=== PATIENT | female | born 1955 | race Caucasian/White ===

== ENCOUNTER 2016-08-21 10:35 | Day surgery (SDC) | payer BC ==
--- NOTE | 2016-08-08 18:57 | HP ---
PREOPERATIVE HISTORY AND PHYSICAL: DATE OF ADMISSION/SURGERY: 08/21/16 This patient is scheduled for Same-Day Surgery admission by Dr. Gottlieb, on 08/21/16. ATTENDING SURGEON: Roni Gottlieb MD (dictated by Chelita Varner NP) CHIEF COMPLAINT: Abdominal pain. HISTORY OF PRESENT ILLNESS: The patient is a 61-year-old female known to Dr. Gottlieb, status post laparoscopic Hardik-en-Y gastric bypass in June 2011. Dr. Gottlieb saw the patient in our office, 07/01/16, with complaints of right upper quadrant abdominal pain. She denies any change in the color of urine or stool or any particular foods that aggravate the pain. She underwent gallbladder ultrasound, 07/02/16, which revealed cholelithiasis without any acute changes. The liver was noted to be normal size. Dr. Gottlieb has recommended laparoscopic cholecystectomy as a Same-Day Surgery procedure and has discussed the nature of the surgical procedure, the rationale for the procedure, the relevant risks and benefits, and today I have reviewed the expected postoperative care and recovery. The patient has had a chance to ask questions and stated that she understands the information and is satisfied with the answers given to her questions. She will sign surgical consent on the day of surgery. PAST MEDICAL HISTORY: Significant for morbid obesity, sleep apnea, previously using CPAP and then discontinued it in 2012 and she has a followup visit with Dr. Neal in August. She also has a history of asthma and environmental allergies. PAST SURGICAL HISTORY: Laparoscopic Hardik-en-Y gastric bypass in [address] Gottlieb; partial hysterectomy for fibroids; tonsillectomy and adenoidectomy. MEDICATIONS: 1. Vitamin B12 at 2000 mcg p.o. daily. 2. MiraLAX 17 g daily. 3. Biotin 10,000 mcg daily. 4. Aspirin 81 mg daily and I have advised her to hold that for 1 week preoperatively. 5. Multivitamin daily. 6. Vitamin C 500 mg daily. 7. Vitamin D3 at 2000 international units daily. 8. Calcium plus D supplement daily. ALLERGIES: ALEVE causes vomiting, TOMATOES cause itching, and she has ENVIRONMENTAL ALLERGIES. FAMILY HISTORY: No known anesthesia complications, bleeding tendencies, or clotting disorders; she states that her mother had gallbladder surgery many years ago and had an arrhythmia afterwards. SOCIAL HISTORY: She lives with her boyfriend; she is employed full-time as an Medical Receptionist at a [employer]; she has never been a smoker and rarely consumes alcohol and denies the use of other substances. REVIEW OF SYSTEMS: She denies any cardiac condition or complaints; she denies any history of deep vein thrombosis or pulmonary embolism; she denies any nausea or vomiting or change in the color of urine or stool; she takes MiraLAX daily for prevention of constipation with good results; she denies any previous anesthesia complications; she denies any bleeding tendencies and may have had a transfusion after child . She denies any dysuria. Today, she reports a sinus headache and a dry cough and plans to schedule an appointment for followup with her primary care provider. She denies any fever or chills or sputum production. PHYSICAL EXAMINATION GENERAL SURVEY: The patient is a 61-year-old overweight female, in no acute distress. VITAL SIGNS: Height 64 inches, weight 199 pounds, body mass index 34.2. Blood pressure 130/88, pulse 84 and regular, respiratory rate 16, temperature 98.4 tympanic. HEENT: Benign. NECK: Supple. No cervical lymphadenopathy. LUNGS: Breath sounds bilaterally clear and equal. No wheezes or rhonchi. HEART: Regular rate and rhythm. No murmurs or rubs appreciated. ABDOMEN: Obese, multiple well-healed surgical scars. Soft and nondistended and nontender throughout. Small palpable umbilical hernia when the patient coughs. No other obvious masses or organomegaly. BACK: No CVA tenderness. PELVIC: Deferred. RECTAL: Deferred. EXTREMITIES: Warm without edema or skin ulcerations. SKIN: Warm, dry, intact. NEUROLOGIC: Alert and oriented x3, steady gait. IMPRESSION: Symptomatic cholelithiasis. PLAN: Same-Day Surgery admission to Dr. Gottlieb's service on 08/21/16 , for laparoscopic cholecystectomy. CHELITA VARNER NP CC: Roni Gottlieb MD at [facility]; Fransico Kim MD * [id number]/[facility] #: [id number] [facility]
[~2016-08-21 10:35] MED LIST: Buffered Lidocaine 1% SYR 3ML* 3 ML/SYR SYRINGE INTRADERM ONE; Famotidine IV* 10 MG/ML 2 ML (20 mg) IV ONE; Morphine INJ* 2 MG/ML 1 ML CARPUJECT IV PRN; PROCHLORPERAZINE INJ 5 MG/ML 2 ML VIAL IV PRN; oxyCODONE/Acetamin 5/325 MG* TAB PO PRN
[2016-08-21] MEDS ORDERED: Atracurium* 10 MG/ML 10 ML VIAL ONE (10:48)
[2016-08-21] MEDS ORDERED: fentaNYL* 50 MCG/ML 2 ML VIAL (100 MCG VIAL) ONE ×2 (10:48→13:07)
[2016-08-21] MEDS ORDERED: Midazolam* 1 MG/ML 5 ML VIAL (5 MG) ONE (10:48)
[2016-08-21] MEDS ORDERED: KETAMINE HCL* 50 MG/ML 10 ML VIAL ONE (10:48)
[2016-08-21] MEDS ORDERED: Buffered Lidocaine 1% SYR 3ML* 3 ML/SYR SYRINGE ONE (10:58)
[2016-08-21] MEDS ORDERED: Famotidine IV* 10 MG/ML 2 ML (20 mg) ONE (10:58)
[2016-08-21] MEDS ORDERED: ceFAZolin 2 GM PREMIX (*) 2 GM/50 ML BAG IVPB ONE (10:58)
[2016-08-21] MEDS ORDERED: Bupivacaine 0.25% EPI 200,000* 30 ML SDV ONE (11:07)
[2016-08-21] MEDS ORDERED: Glycopyrrolate IV* 0.2 MG/ML 1 ML VIAL ONE (11:51)
[2016-08-21] MEDS ORDERED: Propofol* 10 MG/ML 20 ML BTL IV PUSH ONE ×2 (11:51→11:53)
[2016-08-21] MEDS ORDERED: Neostigmine Methylsulfate* 2 MG/2 ML SYRINGE ONE (11:51)
[2016-08-21] MEDS ORDERED: Ondansetron INJ* 2 MG/ML VIAL ONE (11:51)
[2016-08-21] MEDS ORDERED: Dexamethasone IV* 4 MG/ML 1 ML (4 MG) ONE (11:51)
[2016-08-21] MEDS ORDERED: Labetalol IV* 5 MG/ML 20 ML VIAL ONE (11:53)
[2016-08-21] MEDS ORDERED: Morphine INJ* 10 MG/ML 1 ML CARPUJECT ONE (11:56)
[2016-08-21] MEDS ORDERED: hydrALAZINE IV* 20 MG/ML VIAL ONE (12:31)
--- NOTE | 2016-08-21 12:32 | SURGPN ---
Brief Operative Note - Surgery Procedures: Pre-OP Diagnoses: chronic cholecystitis Post-op Diagnosis: same Procedure: Laparoscopic cholecystectomy Surgeon: Bull Asst: Fransico Correiatheraji: MAHOGANY Rebolledo EBL: 50cc IVF: 1400ccLR Specimen: gallbladder Drains: none
[2016-08-21] MEDS ORDERED: oxyCODONE/Acetamin 5/325 MG* TAB ONE (13:07)
[2016-08-21] MEDS ORDERED: PROCHLORPERAZINE INJ 5 MG/ML 2 ML VIAL ONE (13:07)
[2016-08-21] MEDS: fentaNYL* 50 MCG/ML 2 ML VIAL (100 MCG VIAL) IV PRN ×4 (13:11→13:38)
[2016-08-21 14:06] VITALS: BP 157/90
[2016-08-21] MEDS ORDERED: Scopolamine 1.5 mg* PATCH ONE (14:19)
--- NOTE | 2016-08-22 03:07 | OP ---
DATE OF OPERATION: 08/21/16 [facility] DATE OF : 57 SURGEON: Roni Gottlieb MD. CADDY: Elif Bateman NP. ANESTHESIOLOGIST: Dr. Rebolledo. ANESTHESIA: General anesthesia. PRE-OP DIAGNOSIS: Chronic cholecystitis. POST-OP DIAGNOSIS: Chronic cholecystitis. OPERATIVE PROCEDURE: Laparoscopic cholecystectomy. ESTIMATED BLOOD LOSS: 50 cc. FLUIDS: 1400 cc of crystalloid fluid given. SPECIMEN: Gallbladder. DRAINS: None. COMPLICATIONS: None. COUNTS: Lap pad count and instrument count correct at the end of the procedure. DESCRIPTION OF PROCEDURE: The patient was identified in the preoperative area, marked, consent signed, case discussed again with her, and then she was taken to the operating room, placed on the operating table in supine position. Preoperative antibiotics were given. Sequential devices were placed on bilateral lower extremities. General anesthesia was induced. The patient's abdomen was prepped and draped in the standard surgical fashion, a time-out was performed. The folds of the umbilicus were elevated anteriorly and a Veress needle was inserted into the abdominal cavity, which was then allowed to be insufflated to a pressure of 15 mmHg. The patient tolerated the insufflation well. Periumbilical 5 mm port was then inserted. Laparoscope was inserted through this. There was no evidence of injury from the trocar insertion or from the Veress needle, which was then removed. Review of the abdomen showed a normal appearing small bowel with a normal appearing Hardik limb without twisting. There was no free fluid. Additional trocars were then placed in the following position: 12 mm in the subxiphoid area and two 5 mm along the right costal margin. Table was repositioned. Fundus of the gallbladder was identified. This was held anteriorly while the omental attachments were taken down with electrocautery. This exposed the body and infundibulum of the gallbladder, which was grasped and retracted to his right lower quadrant. The lateral peritoneal attachments were taken with the cautery and the medial attachments were similarly taken. The cystic artery was isolated, doubly clipped and ligated, and the cystic duct, which appeared narrow, was also isolated. It was doubly clipped and ligated. The gallbladder was then removed from the liver bed and placed in endoscopic retrieval bag and brought out through the subxiphoid port site. Review of the abdomen again showed no evidence of any significant hernias, internal or ventral. We then identified that the subxiphoid port site was bleeding a fair amount and so we closed the fascia at this port site with 0 Polysorb suture with an Endoclose device in a figure-of- eight fashion to gain hemostasis. Review of the gallbladder fossa revealed blood that had dripped from above. This was suctioned off to ensure that this was not actively bleeding and it was not. We did gain hemostasis at the subxiphoid port as well and again there was no evidence of bleeding or bile leakage from the stumps of the duct or artery. Next, the abdomen was allowed to collapse. Trocars were removed under direct vision and all four skin incisions were reapproximated with 4-0 Monocryl, subcuticular sutures, followed by Steri-Strips and sterile dressing. The patient tolerated the procedure well, was woken up in the OR and transferred to the PACU in stable condition. CC: Dr. Fransico Kim* [id number]/[facility] #: [id number] [facility]
== END 2016-08-21 14:30 | disposition home or self-care (01) ==
LOC: OR 10:35
PROVIDERS: ATTEND Surgery
DX: K80.10 Calculus of gallbladder with chronic cholecystitis without obstruction (principal); J45.909 Unspecified asthma, uncomplicated; G47.30 Sleep apnea, unspecified
CPT/HCPCS: 88304; A9270-GY; J0360; J0690; J0780; J1100; J2250; J2270; J2405; J2704; J3010